=== PATIENT | female | born 1965 | race Caucasian/White ===

== ENCOUNTER 2024-11-01 14:43 | Emergency (ER) | payer BC, SELFPAY ==
[2024-11-01] VITALS (31 sets, daily range): BP systolic 105–183; BP diastolic 75–108; PULSE 96–111; TEMP 36.4; O2SAT 97–98; BMI 30.5
--- NOTE | 2024-11-01 15:03 | ECG_ITS ---
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 Measurements Intervals [place] Rate: 96 P: 65 NV: 144 QRS: 33 QRSD: 80 T: 53 QT: 352 QTc: 406 Interpretive Statements 1100 Sinus rhythm 9110 normal ECG No previous ECG available for comparison Electronically Signed On 11-02-2024 7:17:51 EDT by JANICE SEWELL M.D.
--- NOTE | 2024-11-01 15:04 | ED.GENADUL1 ---
HPI HPI - General Adult General Chief complaint: Psychiatric Symptoms Stated complaint: Overdose Time Seen by Provider: 11/01/24 14:50 Source: family Mode of arrival: walk-in History of Present Illness HPI narrative: 59-year-old female presents for an overdose. 45 minutes ago she took 8-10 Cymbalta tablets at 1 time. She had gotten into an argument with her . She does not have any physical complaints. She states she is never done anything like this previously. No vomiting. Related Data Home Medications ?Medication ?Instructions ?Recorded ?Confirmed albuterol 90 mcg-budesonide 80 2 inh inhalation QDAY 11/01/24 11/01/24 mcg/actuation HFA aerosol inhaler (Airsupra) albuterol sulfate 90 mcg/actuation 2 puff inhalation Q4H PRN 11/01/24 11/01/24 aerosol inhaler shortness of breath or wheezing amoxicillin 500 mg capsule 500 mg PO Q12H 11/01/24 11/01/24 atogepant 60 mg tablet (Qulipta) 60 mg PO QAM 11/01/24 11/01/24 duloxetine 30 mg capsule,delayed 90 mg PO QDAY 11/01/24 11/01/24 release famotidine 20 mg tablet 20 mg PO Q12H 11/01/24 11/01/24 furosemide 20 mg tablet 40 mg PO QAM 11/01/24 11/01/24 ketorolac 10 mg tablet 10 mg PO BID PRN pain 11/01/24 11/01/24 losartan 25 mg tablet 25 mg PO QDAY 11/01/24 11/01/24 ondansetron 4 mg disintegrating 4 mg PO Q8H PRN nausea and vomiting 11/01/24 11/01/24 tablet prednisone 10 mg tablet 40 mg PO QDAY 11/01/24 11/01/24 semaglutide 2 mg/dose (8 mg/3 mL) 2 mg subcut QWEEK 11/01/24 11/01/24 subcutaneous pen injector (Ozempic) Allergies Allergy/AdvReac Type Severity Reaction Status Date / Time codeine AdvReac Intermediate Unknown Verified 11/01/24 15:01 dulaglutide ([facility]) AdvReac Intermediate Abdominal Verified 11/01/24 15:01 Pain metformin AdvReac Intermediate Unknown Verified 11/01/24 15:01 Opioid HPI Opioid Management Most Recent Opioid Data: Ur Phencyclidine Scrn Negative (NEGATIVE) 11/01/24 15:20 11/01/24 Review of Systems ROS Narrative A ten point review of systems is negative except as noted above. PFSH PFSH Social History Little interest or pleasure in doing things: not at all Feeling down, depressed, or hopeless: not at all Exam Narrative Exam Narrative: Nurses note and vital signs reviewed and patient is not hypoxic. General: The patient appears well and in no apparent distress. Patient is resting comfortably on cart. Skin: Warm, dry, no pallor noted. There is no rash noted. Head: Normocephalic, atraumatic Eye: Normal conjunctiva, no drainage Ears, Nose, Mouth, and Throat: oral mucosa is moist. Nares patent. Cardiovascular: Regular Rate and Rhythm, borderline tachycardia Respiratory: Patient is in no distress, no accessory muscle use, lungs are clear to auscultation, no wheezing, rales or rhonchi Back: non-tender, no CVA tenderness bilaterally to percussion. GI: Normal bowel sounds, no tenderness to palpation, no masses appreciated. No rebound, guarding, or rigidity noted. Musculoskeletal: The patient has no evidence of calf tenderness, no pitting edema, symmetrical pulses noted bilaterally Neurological: A&O x4, normal speech Psychiatric: Cooperative, tearful Constitutional Vital Signs, click to edit/add: Last Vital Signs Temp 97.6 F 11/01/24 17:22 Pulse 102 H 11/01/24 18:30 Resp 24 H 11/01/24 18:30 BP 137/79 11/01/24 18:30 Pulse Ox 97 11/01/24 17:22 O2 Del Method Room Air 11/01/24 14:51 Course Vital Signs Vital signs: Vital Signs Temperature 97.5 F L 11/01/24 14:51 Pulse Rate 98 H 11/01/24 14:51 Respiratory Rate 18 11/01/24 14:51 Blood Pressure 183/108 H 11/01/24 14:51 Pulse Oximetry 98 11/01/24 14:51 Oxygen Delivery Method Room Air 11/01/24 14:51 Temperature 97.6 F 11/01/24 17:22 Pulse Rate 102 H 11/01/24 18:30 Respiratory Rate 24 H 11/01/24 18:30 Blood Pressure 137/79 11/01/24 18:30 Pulse Oximetry 97 11/01/24 17:22 Oxygen Delivery Method Room Air 11/01/24 14:51 Medical Decision Making MDM Narrative Medical decision making narrative: The patient is medically cleared. She is being interviewed by mental health services and we are awaiting a disposition. The patient is signed out to Dr. Harris at change of shift. Differential Diagnosis Differential Diagnosis: Depression, anxiety Lab Data Lab results reviewed: Yes I reviewed the patient's lab results Labs: Lab Results 11/01/24 11/01/24 Range/Units 15:13 15:20 WBC 16.7 H (4.0-11.0) 10^3/uL RBC 5.16 (4.20-5.40) 10^6/uL Hgb 15.4 (12.0-16.0) g/dL Hct 45.0 (36.0-48.0) % MCV 87.2 (81.0-99.0) fL MCH 29.8 (26.7-34.0) pg MCHC 34.2 (29.9-35.2) g/dL RDW 12.8 (11.0-15.0) % Plt Count 288 (150-450) 10^3/uL MPV 9.2 L (9.5-13.5) fL Neut % (Auto) 83.9 H (43.0-75.0) % Lymph % (Auto) 10.5 L (20.5-60.0) % [place] % (Auto) 4.0 (1.7-12.0) % Eos % (Auto) 0.2 L (0.9-7.0) % Baso % (Auto) 0.4 (0.2-2.0) % Neut # (Auto) 14.0 H (1.4-6.5) 10^3/uL Lymph # (Auto) 1.8 (1.2-3.8) 10^3/uL [place] # (Auto) 0.7 (0.3-0.8) 10^3/uL Eos # (Auto) 0.0 (0.0-0.7) 10^3/uL Baso # (Auto) 0.1 (0.0-0.1) 10^3/uL Abs Immat Gran (auto) 0.16 H (0.00-0.03) 10^3/uL Imm/Tot Granulo (auto) 1.0 H (0.0-0.5) % Sodium 137 (136-145) mmol/L Potassium 4.1 (3.5-5.1) mmol/L Chloride 98 (98-107) mmol/L Carbon Dioxide 28.5 (21.0-32.0) mmol/L Anion Gap 14.6 BUN 15.0 (7.0-18.0) mg/dL Creatinine 1.61 H (0.55-1.02) mg/dL Est GFR ( Amer) 40 L (>=60 mL/min/1.73m^2) Est GFR (Non-Af Amer) 33 L (>=60 mL/min/1.73m^2) BUN/Creatinine Ratio 9.3 Glucose 310 H (74-106) mg/dL Calcium 9.0 (8.5-10.1) mg/dL Urine Color Lt. yellow (YELLOW) Urine Clarity Clear (CLEAR) Urine pH 6.0 (5.0-9.0) Ur Specific [place] <=1.005 A (1.005-1.025) Urine Protein Negative (NEG/TRACE) mg/dL Urine Glucose (UA) Negative (NEGATIVE) mg/dL Urine Ketones Negative (NEGATIVE) mg/dL Urine Occult Blood Negative (NEGATIVE) Urine Nitrite Negative (NEGATIVE) Urine Bilirubin Negative (NEGATIVE) Urine Urobilinogen 0.2 (0.2-1.0) EU/dL Ur Leukocyte Esterase Small A (NEGATIVE) Urine RBC 0-2 (0-2) #/HPF Urine WBC 2-5 A (NONE SEEN) #/HPF Ur Squamous Epith Cells Few A (NONE/RARE) #/LPF Urine Crystals None seen (None Seen) #/HPF Urine Bacteria None seen (NONE SEEN) #/HPF Urine Casts None seen (NONE SEEN) #/LPF Urine Mucus None seen (NONE SEEN) Ur Culture Indicated? Yes-[facility] [place] Salicylates <2.8 (<=19.9) mg/dL Urine Opiates Screen Negative (NEGATIVE) Ur Buprenorphine Scrn Negative (NEGATIVE) Ur Oxycodone Screen Negative (NEGATIVE) Urine Methadone Screen Negative (NEGATIVE) Acetaminophen <2.0 L (10.0-30.0) ug/mL Ur Barbiturates Screen Negative (NEGATIVE) U Tricyclic Antidepress Negative (NEGATIVE) Ur Phencyclidine Scrn Negative (NEGATIVE) Ur Amphetamines Screen Negative (NEGATIVE) U Methamphetamines Scrn Negative (NEGATIVE) U Benzodiazepines Scrn Negative (NEGATIVE) Urine Cocaine Screen Negative (NEGATIVE) U Cannabinoids Screen Negative (NEGATIVE) Ethanol Quant <3 mg/dL ECG Data Attestation: I personally reviewed and interpreted this ECG as follows: (EKG on my interpretation shows normal sinus rhythm with rate of 96 and no acute change) Discharge Plan Discharge Patient Disposition: Still a Patient
[2024-11-01 15:19] LABS: Basophils Absolute Auto 0.1 10^3/uL (0.0-0.1); Basophils Percent Auto 0.4 % (0.2-2.0); Eosinophils Percent Auto 0.2 % (0.9-7.0); Hemoglobin 15.4 g/dL (12.0-16.0); Immature Granulocytes Abs Auto 0.16 10^3/uL (0.00-0.03); Lymphocytes Absolute Auto 1.8 10^3/uL (1.2-3.8); Lymphocytes Percent Auto 10.5 % (20.5-60.0); Mean Corpuscular HGB Conc 34.2 g/dL (29.9-35.2); Mean Corpuscular Hemoglobin 29.8 pg (26.7-34.0); Mean Corpuscular Volume 87.2 fL (81.0-99.0); Mean Platelet Volume 9.2 fL (9.5-13.5); Monocytes Absolute Auto 0.7 10^3/uL (0.3-0.8); Neutrophils Percent Auto 83.9 % (43.0-75.0); Platelet Count 288 10^3/uL (150-450); Red Blood Count 5.16 10^6/uL (4.20-5.40); Red Cell Distribution Width 12.8 % (11.0-15.0); White Blood Count 16.7 10^3/uL (4.0-11.0)
[2024-11-01] MEDS: CHARCOAL/SORBITOL SOLUTION 50 GM/240 ML BOTTLE 75 GM PO (15:20)
[2024-11-01 15:31] LABS: Salicylate <2.8 mg/dL (<=19.9)
[2024-11-01 15:34] LABS: Acetaminophen <2.0 ug/mL (10.0-30.0)
[2024-11-01 15:35] LABS: Bilirubin Urine NEGATIVE (NEGATIVE); Blood Urine NEGATIVE (NEGATIVE); Clarity Urine CLEAR (CLEAR); Color Urine LT. YELLOW (YELLOW); Glucose Urine UA NEGATIVE (NEGATIVE); Ketones Urine NEGATIVE (NEGATIVE); Leukocyte Esterase Urine SMALL (NEGATIVE); Nitrite Urine NEGATIVE (NEGATIVE); Protein Urine NEGATIVE (NEG/TRACE); Specific Gravity Urine <=1.005 (1.005-1.025); Urobilinogen Urine 0.2 EU/dL (0.2-1.0)
[2024-11-01 15:35] LABS: Anion Gap 14.6; BUN Creatinine Ratio 9.3; Carbon Dioxide 28.5 mmol/L (21.0-32.0); Chloride 98 mmol/L (98-107); Estimated GFR (African America 40 (>=60 mL/min/1.73m^2); Estimated GFR (Non-African Ame 33 (>=60 mL/min/1.73m^2); Ethanol <3 mg/dL; Glucose 310 mg/dL (74-106); Potassium 4.1 mmol/L (3.5-5.1); Sodium 137 mmol/L (136-145)
[2024-11-01] MEDS: ONDANSETRON 4 MG RAPDIS TABLET SL (15:38)
[2024-11-01 15:44] LABS: Amphetamine Screen Urine NEGATIVE (NEGATIVE); Barbiturates Screen Urine NEGATIVE (NEGATIVE); Benzodiazepines Screen Urine NEGATIVE (NEGATIVE); Buprenorphine Screen Urine NEGATIVE (NEGATIVE); Cannabinoid Screen Urine NEGATIVE (NEGATIVE); Cocaine Screen Urine NEGATIVE (NEGATIVE); Methadone Screen Urine NEGATIVE (NEGATIVE); Methamphetamines Screen Urine NEGATIVE (NEGATIVE); Opiate Screen Urine NEGATIVE (NEGATIVE); Oxycodone Screen Urine NEGATIVE (NEGATIVE); Phencyclidine Screen Urine NEGATIVE (NEGATIVE); Tricyclic Antidepressant Urine NEGATIVE (NEGATIVE)
[2024-11-01 15:49] LABS: Bacteria Urine NONE SEEN #/HPF (NONE SEEN); Cast Seen? NONE SEEN #/LPF (NONE SEEN); Crystals Seen? None Seen #/HPF (None Seen); Mucus Urine NONE SEEN (NONE SEEN); RBC Urine 0-2 #/HPF (0-2); Squamous Epithelial Cell Urine FEW #/LPF (NONE/RARE); Urine Culture Indicated YES-FRMC
[2024-11-01 18:50] LABS: Glucometer 390 mg/dL (74-106)
== END 2024-11-01 20:25 ==
PROVIDERS: Emergency Provider Emergency Medicine
DX: T43.212A Poisoning by selective serotonin and norepinephrine reuptake inhibitors, intentional self-harm, initial encounter (principal); F32.9 Major depressive disorder, single episode, unspecified
CPT/HCPCS: 36415; 80048; 80179; 80307; 80320; 80329; 81001; 82948; 85025; 87086; 93005; 99285; Q0162